=== PATIENT | male | born 1955 ===

== ENCOUNTER 2018-12-01 10:39 | Emergency (ER) | payer OTHER ==
--- NOTE | 2018-12-01 11:02 | ER Report ---
History and Physical Time Seen By MD: 10:53 Hx. of Stated Complaint: pt reports he stood up out of bed ~0545, felt dizzy/unsteady, numbness on L side of face, hand and leg. pt denies headache, VAN negative HPI/ROS CHIEF COMPLAINT: Lightheaded and left sided numbness HISTORY OF PRESENT ILLNESS: 63-year-old male with medical history for hypertension, presents with an episode of lightheadedness that started at 5:45 this morning. When he got out of bed, he felt "wobbly" when walking to the bathroom. At about 7:00 this morning he began noting numbness in the left lower leg that progressed upward involving the left upper extremity and left side of face, up to the temporal region. He does not note any provoking factors such as position change from sitting to standing. Since time of onset, the numbness has improved, now only on noted in the left hand and left foot. Patient still feels unstable when standing/walking. He reports a episode of dizziness a week ago associated with a feeling of swollen tongue and dysarthria that lasted for 2 hours. Denies recent illness REVIEW OF SYSTEMS: Constitutional: No fever, no chills. Eyes: No discharge. ENT: No sore throat. Cardiovascular: No chest pain, no palpitations. Respiratory: No cough, no shortness of breath. Gastrointestinal: No abdominal pain, no vomiting. Genitourinary: No hematuria. Musculoskeletal: No back pain. Skin: No rashes. Neurological: No headache. No change in vision or taste As above Allergies: Coded Allergies: No Known Drug Allergies (Unverified , 12/01/18) Past Medical/Surgical History The patient has a past medical and surgical history of murmur, A. fib with last surgical procedure, hypertension, hypercholesterolemia, sleep apnea, asthma, GERD, wears glasses, hard of hearing, wears hearing aids, depression, cardiac catheterization, colonoscopy with polyps, umbilical hernia repair. Reviewed Nurses Notes: Yes Constitutional Vital Sign - Last 24 Hours 12/01/18 12/01/18 12/01/18 12/01/18 10:40 10:45 11:00 11:15 Temp 98.1 Pulse 68 68 65 61 Resp 16 23 13 16 B/P (MAP) 159/80 Pulse Ox 94 87 93 95 O2 Delivery Room Air 7/12/01/18 12/01/18 12/01/18 11:30 12:00 12:15 12:30 Pulse 61 58 61 57 Resp 26 15 22 23 B/P (MAP) 141/75 (97) Pulse Ox 96 95 94 93 12/01/18 12/01/18 12/01/18 12/01/18 12:45 13:00 13:30 15:54 Pulse 59 Resp 18 14 B/P (MAP) 155/90 (111) Pulse Ox 93 94 Physical Exam General Appearance: The patient is alert, has no immediate need for airway protection and no signs of toxicity. Eyes: Pupils equal and round no pallor or injection. EOMs intact. ENT, Mouth: Mucous membranes are moist. Respiratory: There are no retractions, lungs are clear to auscultation. Cardiovascular: Regular rate and rhythm. Gastrointestinal: Abdomen is soft and non tender, no masses, bowel sounds normal. Neurological: Alert and oriented, cranial nerves 2 through 12 intact except for mild decrease in hearing on the left compared to the right, muscle strength 5 out of 5 upper extremities and lower extremities bilaterally, sensation to light touch intact on upper extremities and lower extremities bilaterally, DTRs +2 out of 4 at the patellar tendons and biceps tendons bilaterally. Romberg test negative. Skin: Warm and dry. White scaly plaque on right knee. Musculoskeletal: Neck is supple non tender. Extremities are nontender, nonswollen and have full range of motion. DIFFERENTIAL DIAGNOSIS: After history and physical exam differential diagnosis was considered for TIA, electrolyte abnormality or evolving stroke, less likely othrostatic hypotension, vestibular neuritis or BPPV. NIH Stroke Scale: 1 Level of consciousness: Alert -0 Answers both questions correctly-0 Performs both tasks correctly-0 Best Gaze: Normal-0 Visual: No visual loss-0 Facial Palsy: Normal, symmetrical movements-0 Motor Left Arm: No drift for 10 seconds-0 Motor Right Arm: No drift for 10 seconds-0 Motor Left Leg: No drift for 5 seconds-0 Motor Right Leg: No drift for 5 seconds-0 Limb Ataxia: Absent-0 Sensory: mild sensory loss to left lateral foot and left lateral arm-1 Best Language: Normal, no aphasia-0 Dysarthria: Normal-0 Extinction and Inattention: No abnormality-0 Medical Decision Making Data Points Result Diagram: 12/01/18 1044 12/01/18 1044 Laboratory Hematology Test 12/01/18 10:44 White Blood Count 6.2 k/uL (4.5-11.0) Red Blood Count 5.26 M/uL (4.00-5.60) Hemoglobin 14.8 g/dL (14.0-18.0) Hematocrit 42.9 % (42.0-52.0) Mean Corpuscular Volume 81.6 fL (80.0-96.0) Mean Corpuscular Hemoglobin 28.2 pg (26.0-33.0) Mean Corpuscular Hemoglobin Concent 34.5 g/dL (32.0-36.0) Red Cell Distribution Width 14.1 % (11.5-14.5) Platelet Count 223 K/uL (150-450) Mean Platelet Volume 8.7 fL (7.2-11.1) Neutrophils (%) (Auto) 67.9 % (39.4-72.5) Lymphocytes (%) (Auto) 24.3 % (17.6-49.6) Monocytes (%) (Auto) 5.6 % (4.1-12.4) Eosinophils (%) (Auto) 1.4 % (0.4-6.7) Basophils (%) (Auto) 0.8 % (0.3-1.4) Nucleated RBC Relative Count (auto) 0.5 /100WBC Neutrophils # (Auto) 4.2 K/uL (2.0-7.4) Lymphocytes # (Auto) 1.5 K/uL (1.3-3.6) Monocytes # (Auto) 0.3 K/uL (0.3-1.0) Eosinophils # (Auto) 0.1 K/uL (0.0-0.5) Basophils # (Auto) 0.0 K/uL (0.0-0.1) Nucleated RBC Absolute Count (auto) 0.03 K/uL Chemistry Test 12/01/18 10:44 Sodium Level 137 mmol/L (137-145) Potassium Level 4.0 mmol/L (3.5-5.0) Chloride Level 100 mmol/L (98-107) Carbon Dioxide Level 24 mmol/L (22-30) Blood Urea Nitrogen 18 mg/dl (9-21) Creatinine 1.00 mg/dl (0.66-1.25) Glomerular Filtration Rate Calc > 60.0 Random Glucose 168 mg/dl (75-110) Calcium Level 9.8 mg/dl (8.4-10.2) Total Bilirubin 0.8 mg/dl (0.2-1.3) Aspartate Amino Transf (AST/SGOT) 30 U/L (0-35) Alanine Aminotransferase (ALT/SGPT) 55 U/L (0-56) Alkaline Phosphatase 47 U/L (0-126) Troponin I 0.030 ng/ml Total Protein 7.4 g/dl (6.3-8.2) Albumin 4.4 g/dl (3.5-5.0) Coagulation Test 12/01/18 10:44 Prothrombin Time 13.3 seconds (12.0-14.4) Prothromb Time International Ratio 1.01 Activated Partial Thromboplast Time 31 seconds (23-35) Urinalysis Test 12/01/18 11:39 Urine Color Yellow Urine Clarity Clear Urine pH N pH (4.8-9.5) Urine Specific [place] 6.0 Urine Protein Negative mg/dL (NEGATIVE) Urine Glucose (UA) Negative mg/dL (NEGATIVE) Urine Ketones Negative mg/dL (NEGATIVE) Urine Blood Negative (NEGATIVE) Urine Nitrite Negative (NEGATIVE) Urine Bilirubin Negative (NEGATIVE) Urine Urobilinogen Negative mg/dL (0.2-1.9) Urine Leukocyte Esterase Negative (NEGATIVE) Urine RBC 1 /HPF (0-2/HPF) Urine WBC 2 /HPF (0-5/HPF) Urine Squamous Epithelial Cells None /LPF (</=FEW) Urine Bacteria Negative /HPF (NONE-FEW) Urine Mucus None /HPF (NONE-FEW) EKG/Imaging EKG Interpretation 12 lead EKG: Time of EKG 1213. Rhythm: Normal sinus rhythm, ventricular rate 60 bpm. [place]: normal QRS: normal ST segments: No ST depression or elevation identified. No previous EKGs for comparison. Imaging PATIENT NAME: Hernesto Begum : 1955 MR: [id number] V: [id number] EXAM DATE: ORDERING PHYSICIAN: KLAUDIA EARL TECHNOLOGIST: Location: [facility] Patient: Hernesto Begum : 1955 Visit/Account:[id number] Date of Sevice: 12/01/2018 EXAMINATION: MRI brain without IV contrast HISTORY: Left-sided facial numbness, dizziness, unsteadiness, concern for stroke COMPARISON: None. TECHNIQUE: Multi-planar, multi-sequence brain MRI was performed without IV contrast. FINDINGS: Brain volume: Mild generalized atrophy with associated concordant prominence of the ventricular system. Sagittal midline structures: Normal. Ventricles: Normal. Acute ischemic changes: None. Hemorrhage: None. Masses/edema: None. Guillen-white: Negative. White matter: A few T2/FLAIR hyperintensities scattered throughout the hemispheric white matter. Vessels: Normal. Extra-axial: None. Calvarium/scalp: Negative. Skull base: Negative. Visualized sinuses/orbits: Mild mucosal thickening. Visualized upper neck: Negative. IMPRESSION: 1. No acute or focal abnormality to explain patient's symptoms. 2. Mild atrophy and T2 bright hemispheric white matter changes likely reflect age and vascular risk factors. Report Dictated By: REYNA STEWARD at 12/01/2018 3:21 PM Report E-Signed By: REYNA STEWARD at 12/01/2018 3:32 PM WSN:[email or web address] PATIENT NAME: Hernesto Begum : 1955 MR: [id number] V: [id number] EXAM DATE: ORDERING PHYSICIAN: KLAUDIA EARL TECHNOLOGIST: Location: [facility] Patient: Hernesto Begum : 1955 Visit/Account:[id number] Date of Sevice: 12/01/2018 EXAMINATION: CT head without IV contrast HISTORY: Numbness and left-sided the body and stroke symptoms COMPARISON: None. TECHNIQUE: Contiguous axial images were obtained from the skull base to the vertex without intravenous contrast. Sagittal and coronal reformatted images are also submitted. One of the following dose optimization techniques was utilized in the performance of this exam: Automated exposure control; adjustment of the mA and/or kV according to the patient's size; or use of an iterative reconst ruction technique. Specific details can be referenced in the facility's radiology CT exam operational policy. FINDINGS: Ventricles and sulci are grossly symmetric and reflect moderate atrophy. The guillen-white differentiation is intact. No evidence of intracranial hemorrhage or extra-axial fluid collection. No evidence of infarct or space- occupying mass. There is atherosclerotic disease in the carotid siphons and left vertebral artery. The orbits are intact. Visualized paranasal sinuses and mastoid air cells are clear. IMPRESSION: 1. No acute intracranial findings. 2. Atrophy and atherosclerotic disease. Report Dictated By: REYNA STEWARD at 12/01/2018 11:58 AM Report E-Signed By: REYNA STEWARD at 12/01/2018 12:02 PM WSN:[email or web address] ED Course/Re-evaluation Clinical Indication for ER IV: IV Access ED Course 12/01/2018 11:52:01 am A 63 yo male presented with espisode of lightheadedness and left-sided numbness, now improved without neurological deficit. NIH stroke scale 1. EKG, CBC, CMP, troponin and UA. Negative head CT. With the patient's symptomology today, as well as the remote history of numbness of the tongue I did recommend an MRI of the brain. Negative MRI. I did tell the patient his symptoms are consistent with a TIA. All of the results were reviewed with the patient, as the patient does not live here locally, I did recommend that he follows up as soon as possible when he returns home next week for reevaluation and following up with neurology, I did recommend an echocardiogram and carotid study and repeat laboratory studies when he returns home. The patient was agreeable with this plan of care, he was discharged. 12/01/2018 12:34:07 pm Discussed lab results and CT scan with patient, which were within normal limits elevated glucose. Given recent episode of lightheadedness in addition to today's presentation, patient is agreeable to have brain MRI completed today. His ABCD2 score was making him moderate risk or stroke after TIA. Decision to Disposition Date: Dec 01, 2018 Decision to Disposition Time: 15:51 Depart Departure Latest Vital Signs Vital Signs Date Time Temp Pulse Resp B/P (MAP) Pulse Ox O2 Delivery O2 Flow Rate FiO2 12/01/18 15:54 155/90 (111) 12/01/18 13:30 14 94 12/01/18 12:45 59 12/01/18 10:40 98.1 Room Air Impression: Primary Impression: TIA (transient ischemic attack) Condition: Improved Disposition: HOME OR SELF-CARE Patient Instructions: Transient Ischemic Attack (ED) Additional Instructions: Increase aspirin to 325 mg daily. Please follow-up with your primary care physician and neurology when you return home next week. We recommend that you drink plenty of fluids and stay well rested. It's okay to return to your normal daily activity. If you note any recurrent symptoms or numbness, weakness, or problems speaking return to the emergency department. KLAUDIA EARL [employer] MECHANIC-BC Dec 01, 2018 11:02
[2018-12-01 11:47] LABS: PLATELET COUNT, AUTOMATED 223 K/uL (150-450)
[2018-12-01 11:52] LABS: INR 1.01
--- NOTE | 2018-12-01 12:10 | RADIOLOGY IMAGING REPORT ---
FACILITY: [facility] PATIENT NAME: Hernesto Begum : 1955 MR: [id number] V: [id number] EXAM DATE: ORDERING PHYSICIAN: KLAUDIA EARL TECHNOLOGIST: Location: [facility] [place] Patient: Hernesto Begum : 1955 Visit/Account:[id number] Date of Sevice: 12/01/2018 EXAMINATION: CT head without IV contrast HISTORY: Numbness and left-sided the body and stroke symptoms COMPARISON: None. TECHNIQUE: Contiguous axial images were obtained from the skull base to the vertex without intraven ous contrast. Sagittal and coronal reformatted images are also submitted. One of the following dose optimization techniques was utilized in the performance of this exam: Autom ated exposure control; adjustment of the mA and/or kV according to the patient's size; or use of an i terative reconstruction technique. Specific details can be referenced in the facility's radiology C T exam operational policy. FINDINGS: Ventricles and sulci are grossly symmetric and reflect moderate atrophy. The villegas-white dif ferentiation is intact. No evidence of intracranial hemorrhage or extra-axial fluid collection. No ev idence of infarct or space-occupying mass. There is atherosclerotic disease in the carotid siphons and left vertebral artery. The orbits are int act. Visualized paranasal sinuses and mastoid air cells are clear. IMPRESSION: 1. No acute intracranial findings. 2. Atrophy and atherosclerotic disease. Report Dictated By: REYNA STEWARD at 12/01/2018 11:58 AM Report E-Signed By: REYNA STEWARD at 12/01/2018 12:02 PM WSN:[email or web address]
--- NOTE | 2018-12-01 12:29 | EKG ---
FACILITY: [facility] [place] PATIENT NAME: CHARMAINE SNOW : [id number] MR: [id number] V: [id number] EXAM DATE: ORDERING PHYSICIAN: KLAUDIA EARL TECHNOLOGIST: SELENA Test Reason : POSS STROKE Blood Pressure : / mmHG Vent. Rate : 060 BPM Atrial Rate : 060 BPM P-R Int : 142 ms QRS Dur : 096 ms QT Int : 446 ms P-R-T Axes : 031 022 054 degrees QTc Int : 446 ms Sinus rhythm Artifact in several limb leads - repeat if needed Nonspecific ST findings inferior leads No previous ECGs available Confirmed by ZULEIKA DOOLEY ([id number]) on 12/01/2018 1:16:12 PM Referred By: LIZANDRO Confirmed By:ZULEIKA DOOLEY
--- NOTE | 2018-12-01 13:26 | RADIOLOGY IMAGING REPORT ---
FACILITY: [facility] PATIENT NAME: Hernesto Begum : 1955 MR: [id number] V: [id number] EXAM DATE: ORDERING PHYSICIAN: KLAUDIA EARL TECHNOLOGIST: Location: [facility] [place] Patient: Hernesto Begum : 1955 Visit/Account:[id number] Date of Sevice: 12/01/2018 Examination: XR ORBITS Comparison: None. History: MRI clearance. Findings: Dental amalgam. No radiopaque foreign body in the region of the orbits. Visualized osseou s structures and paranasal sinuses are unremarkable. IMPRESSION: No radiopaque foreign body in the region of the orbits. Report Dictated By: Morris White MD at 12/01/2018 1:17 PM Report E-Signed By: Morris White MD at 12/01/2018 1:18 PM WSN:[id number]
--- NOTE | 2018-12-01 15:40 | RADIOLOGY IMAGING REPORT ---
FACILITY: [facility] PATIENT NAME: Hernesto Begum : 1955 MR: [id number] V: [id number] EXAM DATE: ORDERING PHYSICIAN: KLAUDIA EARL TECHNOLOGIST: Location: [facility] [place] Patient: Hernesto Begum : 1955 Visit/Account:[id number] Date of Sevice: 12/01/2018 EXAMINATION: MRI brain without IV contrast HISTORY: Left-sided facial numbness, dizziness, unsteadiness, concern for stroke COMPARISON: None. TECHNIQUE: Multi-planar, multi-sequence brain MRI was performed without IV contrast. FINDINGS: Brain volume: Mild generalized atrophy with associated concordant prominence of the ventricular syst em. Sagittal midline structures: Normal. Ventricles: Normal. Acute ischemic changes: None. Hemorrhage: None. Masses/edema: None. Guillen-white: Negative. White matter: A few T2/FLAIR hyperintensities scattered throughout the hemispheric white matter. Vessels: Normal. Extra-axial: None. Calvarium/scalp: Negative. Skull base: Negative. Visualized sinuses/orbits: Mild mucosal thickening. Visualized upper neck: Negative. IMPRESSION: 1. No acute or focal abnormality to explain patient's symptoms. 2. Mild atrophy and T2 bright hemispheric white matter changes likely reflect age and vascular risk f actors. Report Dictated By: REYNA STEWARD at 12/01/2018 3:21 PM Report E-Signed By: REYNA STEWARD at 12/01/2018 3:32 PM WSN:[email or web address]
[2018-12-01 15:54] VITALS: BP 155/90
== END 2018-12-01 16:16 | disposition home or self-care (01) ==
LOC: ER 10:39
DX: G45.9 Transient cerebral ischemic attack, unspecified (principal)
CPT/HCPCS: 70030; 70450; 70551; 81001; 82040; 82247; 82310; 82374; 82435; 82565; 82947; 84075; 84132; 84155; 84295; 84450; 84460; 84484; 84520; 85025; 85610; 85730; 93005; 99284